=== PATIENT | male | born 1980 | race Caucasian/White ===

== ENCOUNTER 2017-03-28 18:04 | Emergency (ER) | payer SELFPAY ==
[~2017-03-28] VITALS: Ht 175.3 cm; Wt 81.6 kg
[2017-03-28 18:05] VITALS: BP 169/89
[2017-03-28] MEDS ORDERED: AMOX500C PO (19:20)
[2017-03-28] MEDS ORDERED: IBUPROFEN 800 MG TAB PO ONE (19:30)
[2017-03-28] MEDS ORDERED: AMOXICILLIN 500 MG CAP PO ONE (19:30)
== END 2017-03-28 19:51 | disposition home or self-care (01) ==
LOC: M ED 19:33
DX: H65.03 Acute serous otitis media, bilateral (principal); J02.0 Streptococcal pharyngitis; F17.210 Nicotine dependence, cigarettes, uncomplicated